=== PATIENT | female | born 1940 | race Caucasian/White ===

== ENCOUNTER 2017-11-26 23:16 | Inpatient (IN) | payer OTHER ==
[~2017-11-26] VITALS: Ht 157.5 cm; Wt 72.4 kg
[2017-11-27] VITALS (10 sets, daily range): BP systolic 122–174; BP diastolic 66–97
[2017-11-27 00:38] LABS: HEMATOCRIT 38.7 % (36.0-46.0); HEMOGLOBIN 13.2 G/DL (11.9-15.5); MCH 29.7 PG (29.0-34.0); MCHC 34.1 G/DL (30.0-36.0); MCV 87.2 FL (83-99); PLATELET COUNT 204 K/uL (156-360); RBC DIS.WIDTH-SD 45.1 % (39-53); RED BLOOD COUNT 4.44 M/uL (3.80-5.20); WHITE BLOOD COUNT 7.8 K/uL (4.1-10.2)
[2017-11-27 00:46] LABS: ALBUMIN 3.8 g/dL (3.2-4.8); CHLORIDE 105 mEq/L (99-109); POTASSIUM 3.8 mEq/L (3.7-5.4); SODIUM 141 mEq/L (136-147)
[2017-11-27 00:48] LABS: GLUCOSE 121 mg/dL (70-99)
[2017-11-27 00:49] LABS: TOTAL PROTEIN 6.6 g/dL (6.4-8.3)
[2017-11-27 00:50] LABS: TOTAL BILIRUBIN 0.2 mg/dL (0.0-1.0)
[2017-11-27 00:52] LABS: ALKALINE PHOSPHATASE 84 IU/L (3-129); CREATININE 1.5 mg/dL (0.6-1.3); GFR ESTIMATE (CALCULATED) 36 mL/min/
[2017-11-27 00:53] LABS: UREA NITROGEN (BUN) 30 mg/dL (9-23)
[2017-11-27 00:54] LABS: AST (GOT) 23 IU/L (2-34)
[2017-11-27 00:55] LABS: ALT (GPT) 20 IU/L (3-49)
[2017-11-27 00:56] LABS: LIPASE 30 U/L (1.0-51.0)
[2017-11-27 01:01] LABS: TROP-I INTERPRETATION NEGATIVE; TROPONIN-I 0.08 ng/mL (0.0-0.30)
[2017-11-27 05:53] LABS: TROP-I INTERPRETATION POSITIVE; TROPONIN-I 1.51 ng/mL (0.0-0.30)
[2017-11-27 05:56] LABS: CHLORIDE 106 MEQ/L (99-109); CREATININE 1.1 MG/DL (0.6-1.3); GFR ESTIMATE (CALCULATED) 51 mL/min/; GLUCOSE 114 mg/dL (70-99); POTASSIUM 3.8 MEQ/L (3.7-5.4); SODIUM 142 MEQ/L (136-147); UREA NITROGEN (BUN) 25 mg/dL (9-23)
[2017-11-27 06:47] LABS: PTT 25.8 SEC (25-37)
[2017-11-27 07:13] LABS: HDL CHOLESTEROL 37 MG/DL (Desirable>=50); LDL CHOLESTEROL 93 mg/dL (Desirable<100); NON-HDL CHOLESTEROL 119 mg/dL (Desirable<160); TOTAL CHOLESTEROL 156 mg/dL (Desirable<200); TRIGLYCERIDES 131 MG/DL (Normal: <150)
[2017-11-27] MEDS ORDERED: PRILOSEC20 MG PO (08:56)
[2017-11-27] MEDS ORDERED: CALAN SR,COVER180 MG PO (09:01)
[2017-11-27] MEDS ORDERED: HYDROCHLOROTHIA25 MG PO (09:02)
[2017-11-27] MEDS ORDERED: ZOCOR40 MG PO (09:02)
[2017-11-27] MEDS ORDERED: CYMBALTA60 MG PO (09:04)
[2017-11-27] MEDS ORDERED: ASPIRIN81 M2 PO (09:04)
[2017-11-27] MEDS ORDERED: RELPAX20 MG PO (09:05)
[2017-11-27] MEDS ORDERED: LUNESTA1 MG PO (09:11)
[2017-11-27] MEDS ORDERED: MULTI VITAMIN1 EACH PO (09:12)
[2017-11-27] MEDS ORDERED: CITRACAL + D M1 EACH PO (09:14)
[2017-11-27] MEDS ORDERED: VITAMIN B-2100 MG PO (09:15)
[2017-11-27] MEDS ORDERED: VITAMIN D5000 UNI1 PO (09:16)
[2017-11-27] MEDS ORDERED: MAGNESIUM250 MG PO (09:16)
[2017-11-27] MEDS ORDERED: FISH OIL 1,0001 EAC7 PO (09:17)
[2017-11-27] MEDS ORDERED: VITAMIN E100 UNIT PO (09:18)
[2017-11-27] MEDS ORDERED: FERROUS SULFAT325 MG PO (09:19)
[2017-11-27 14:41] LABS: TROP-I INTERPRETATION POSITIVE; TROPONIN-I 4.31 ng/mL (0.0-0.30)
[2017-11-28 04:02] VITALS: BP 138/76
[2017-11-28 05:23] LABS: BASOPHIL (%) 0.2 % (0-1); EOSINOPHIL (%) 1.2 % (0-5); EOSINOPHIL COUNT 0.1 K/uL (0-0.3); HEMATOCRIT 38.6 % (36.0-46.0); HEMOGLOBIN 12.5 G/DL (11.9-15.5); IMMATURE GRANULOCYTE (%) 0.4 % (0.0-0.7); LYMPHOCYTE (%) 12.9 % (15-42); LYMPHOCYTE COUNT 1.2 K/uL (1.0-2.8); MCH 28.6 PG (29.0-34.0); MCHC 32.4 G/DL (30.0-36.0); MCV 88.3 FL (83-99); MONOCYTE (%) 8.1 % (3-12); MONOCYTE COUNT 0.8 K/uL (0-0.8); NEUTROPHIL (%) 77.2 % (45-76); NEUTROPHIL COUNT 7.4 K/uL (1.8-6.4); PLATELET COUNT 191 K/uL (156-360); RBC DIS.WIDTH-CV 14.3 % (11.8-14.6); RBC DIS.WIDTH-SD 46.2 % (39-53); RED BLOOD COUNT 4.37 M/uL (3.80-5.20); WHITE BLOOD COUNT 9.6 K/uL (4.1-10.2)
[2017-11-28 06:15] LABS: ALBUMIN 3.5 G/DL (3.2-4.8); ALKALINE PHOSPHATASE 54 IU/L (3-129); ALT (GPT) 47 IU/L (3-49); AST (GOT) 121 IU/L (2-34); CHLORIDE 105 MEQ/L (99-109); CREATININE 0.7 MG/DL (0.6-1.3); GFR ESTIMATE (CALCULATED) > 59 mL/min/; GLUCOSE 101 mg/dL (70-99); POTASSIUM 4.3 MEQ/L (3.7-5.4); SODIUM 141 MEQ/L (136-147); TOTAL BILIRUBIN 0.5 MG/DL (0.0-1.0); TOTAL PROTEIN 5.4 G/DL (6.4-8.3); UREA NITROGEN (BUN) 17 mg/dL (9-23)
[2017-11-28 08:41] VITALS: BP 136/65
[2017-11-28 11:23] VITALS: BP 131/67
[2017-11-28] MEDS ORDERED: BRILINTA90 MG PO (12:09)
[2017-11-28] MEDS ORDERED: LIPITOR40 MG PO (12:09)
[2017-11-28] MEDS ORDERED: LOPRESSOR25 MG PO (12:09)
[2017-11-28] MEDS ORDERED: LIDOCAINE700 MG TP (12:09)
== END 2017-11-28 15:15 | disposition home or self-care (01) | DRG 247 ==
LOC: EME 23:16 → EDBD 23:16 → EDSEX 23:16 → 4SOUTH 11-27 02:28 → EDOF 11-27 02:28 → ENRESERV 11-27 02:31 → 4SOUTH 11-27 03:56 → 4EAST 11-27 06:30 → 4SOUTH 11-27 06:30 → ENRESERV 11-27 06:36 → 4WEST 11-27 13:10 → ENRESERV 11-27 14:21 → 4EAST 11-27 16:23
PROVIDERS: Emergency Medicine; Physician Assistant; Student in an Organized Health Care Education/Training Program
DX: I21.4 Non-ST elevation (NSTEMI) myocardial infarction (principal); I10 Essential (primary) hypertension; I25.10 Atherosclerotic heart disease of native coronary artery without angina pectoris; G47.33 Obstructive sleep apnea (adult) (pediatric); K21.9 Gastro-esophageal reflux disease without esophagitis; E78.5 Hyperlipidemia, unspecified; Z85.828 Personal history of other malignant neoplasm of skin; Z86.73 Personal history of transient ischemic attack (TIA), and cerebral infarction without residual deficits; Z79.82 Long term (current) use of aspirin; Z82.49 Family history of ischemic heart disease and other diseases of the circulatory system
CPT/HCPCS: 71046; 71275; 80048; 80053; 80061; 83690; 84484; 85025; 85027; 85347; 85379; 85610; 85730; 93005; 99281; 99284; C1725; C1769; C1874; C1887; J1644; J2250; J2405; J3010; J7030